=== PATIENT | female | born 1945 | race Caucasian/White ===

== ENCOUNTER 2021-06-20 15:06 | Observation (INO) ==
[2021-06-20] MEDS ORDERED: Melatonin 3 MG TABLET PO PRN (18:13)
[2021-06-20] MEDS ORDERED: Naloxone 0.4 MG/ML INJ IVP PRN (18:13)
[2021-06-20] MEDS ORDERED: Perflutren Lipid Microsphere 1.3 ML in 0.9 % Sodium Chloride 8.7 ML IVP PRN (18:35)
[2021-06-20] MEDS ORDERED: Gadolinium Contrast Agent (WT Based) IV PRN (18:35)
[2021-06-21 04:37] LABS: Hemoglobin 11.6 g/dL (11.5-15.4); Mean Corpuscular HGB Conc 33.1 g/dL (31.6-35.5); Mean Corpuscular Hemoglobin 29.5 pg (28.0-33.3); Mean Corpuscular Volume 89.1 fL (83.0-100.0); Mean Platelet Volume 9.8 fL (9.4-12.4); Platelet Count 313 K/mcL (140-400); Red Blood Count 3.93 M/mcL (3.82-4.97); Red Cell Distribution Width 17.3 % (11.5-14.5); White Blood Count 5.8 K/mcL (4.3-11.1)
[2021-06-21 04:57] LABS: BUN/Creatinine Ratio 35 (6-26); Blood Urea Nitrogen 19 mg/dL (8-23); Calcium 8.9 mg/dL (8.6-10.3); Carbon Dioxide 26 mEq/L (23-29); Chloride 106 mEq/L (98-107); Chol/HDL Ratio 2.7 (0-4.9); Cholesterol 167 mg/dL (< 200); Glucose 106 mg/dL (70-105); HDL Cholesterol 61 mg/dL (40-59); LDL Cholesterol,Calculated 89 mg/dL (< 100); Magnesium 1.9 mg/dL (1.6-2.6); Osmolality,Calculated 293 (280-300); Potassium 3.9 mEq/L (3.5-5.1); Sodium 140 mEq/L (136-145); Triglycerides 87 mg/dL (< 150); eGFR For African Americans > 60 (> 60); eGFR For Non-African Americans > 60 (> 60)
[2021-06-21] MEDS: *HR* Heparin 5,000 UNIT/ML VIAL SQ SCH ×2 (05:32→17:12)
[2021-06-21] MEDS: Aspirin Enteric Coated 81 MG Tablet PO SCH (17:12)
[2021-06-22] MEDS: *HR* Heparin 5,000 UNIT/ML VIAL SQ SCH ×2 (05:20→18:13)
[2021-06-22] MEDS ORDERED: GADOBUTROL 30 MMOL/30 ML VIAL IVP ONE (07:26)
[2021-06-22] MEDS: Aspirin Enteric Coated 81 MG Tablet PO SCH (08:39)
[2021-06-22] MEDS: lisinopriL 5 MG TABLET PO SCH (08:39)
[2021-06-23] MEDS: *HR* Heparin 5,000 UNIT/ML VIAL SQ SCH (06:15)
[2021-06-23 06:33] VITALS: BP 127/79; PULSE 85; TEMP 97.9; O2SAT 98
[2021-06-23] MEDS: Aspirin Enteric Coated 81 MG Tablet PO SCH (07:30)
[2021-06-23] MEDS: lisinopriL 5 MG TABLET PO SCH (07:30)
== END 2021-06-23 09:35 | disposition home health service (06) ==
LOC: 3BNU → SUATTDRO 17:48
PROVIDERS: ADMIT Family Medicine; ATTEND Internal Medicine

== ENCOUNTER 2021-06-25 07:52 | Observation (INO) ==
[2021-06-25] MEDS ORDERED: Gadolinium Contrast Agent (WT Based) IV PRN ×2 (08:01→08:02)
[2021-06-25] MEDS ORDERED: GI Cocktail 40 ML EACH PO ONE (08:24)
[2021-06-25 08:51] LABS: Hematocrit 34.4 % (35.3-44.9); Mean Corpuscular Hemoglobin 28.9 pg (28.0-33.3); Mean Corpuscular Volume 90.3 fL (83.0-100.0); Mean Platelet Volume 9.9 fL (9.4-12.4); Platelet Count 279 K/mcL (140-400); Red Blood Count 3.81 M/mcL (3.82-4.97); Red Cell Distribution Width 17.2 % (11.5-14.5); White Blood Count 4.8 K/mcL (4.3-11.1)
[2021-06-25] MEDS ORDERED: GADOBUTROL 30 MMOL/30 ML VIAL IVP ONE (09:02)
[2021-06-25 09:09] LABS: BUN/Creatinine Ratio 30 (6-26); Blood Urea Nitrogen 15 mg/dL (8-23); Calcium 8.8 mg/dL (8.6-10.3); Carbon Dioxide 23 mEq/L (23-29); Chloride 108 mEq/L (98-107); Glucose 119 mg/dL (70-105); Osmolality,Calculated 290 (280-300); Potassium 3.6 mEq/L (3.5-5.1); Sodium 139 mEq/L (136-145); eGFR For African Americans > 60 (> 60); eGFR For Non-African Americans > 60 (> 60)
[2021-06-25] MEDS ORDERED: Ondansetron 4 MG/2 ML VIAL IVP PRN (11:39)
[2021-06-25] MEDS ORDERED: Naloxone 0.4 MG/ML INJ IVP PRN (11:39)
[2021-06-25] MEDS ORDERED: Pantoprazole 40 MG VIAL IVP SCH (18:00)
[2021-06-25] MEDS ORDERED: *HR* LORazepam 2 MG/ML VIAL IVP ONE (21:59)
[2021-06-26 05:16] LABS: Basophils % 0.9 %; Eosinophils # 0.2 K/mcL (0.0-0.6); Eosinophils % 5.2 %; Hematocrit 31.1 % (35.3-44.9); Hemoglobin 10.2 g/dL (11.5-15.4); Immature Granulocytes % 0.4 % (0-4); Lymphocytes # 0.7 K/mcL (0.6-4.6); Lymphocytes % 14.2 %; Mean Corpuscular HGB Conc 32.8 g/dL (31.6-35.5); Mean Corpuscular Hemoglobin 29.9 pg (28.0-33.3); Mean Corpuscular Volume 91.2 fL (83.0-100.0); Mean Platelet Volume 9.9 fL (9.4-12.4); Monocytes # 0.6 K/mcL (0.0-1.3); Monocytes % 13.4 %; Neutrophils # 3.1 K/mcL (1.6-8.9); Platelet Count 236 K/mcL (140-400); Red Blood Count 3.41 M/mcL (3.82-4.97); Red Cell Distribution Width 17.3 % (11.5-14.5); Segmented Neutrophils % 65.9 %; White Blood Count 4.6 K/mcL (4.3-11.1)
[2021-06-26 05:28] LABS: BUN/Creatinine Ratio 20 (6-26); Blood Urea Nitrogen 10 mg/dL (8-23); Calcium 8.6 mg/dL (8.6-10.3); Carbon Dioxide 24 mEq/L (23-29); Chloride 110 mEq/L (98-107); Glucose 104 mg/dL (70-105); Osmolality,Calculated 289 (280-300); Potassium 3.7 mEq/L (3.5-5.1); Sodium 140 mEq/L (136-145); eGFR For African Americans > 60 (> 60); eGFR For Non-African Americans > 60 (> 60)
[2021-06-26] MEDS ORDERED: Levothyroxine Sodium 100 MCG VIAL IVP SCH (06:30)
[2021-06-26] MEDS ORDERED: Isovue-370 500 ML BOTTLE IVP ONE (08:26)
[2021-06-26] MEDS ORDERED: Isovue-370 500 ML BOTTLE PO ONE (09:01)
[2021-06-26 10:49] LABS: % Iron Saturation 18 % (15-50); Iron 63 mcg/dL (50-170); Transferrin 245 mg/dL (203-362)
[2021-06-26 11:05] LABS: Triiodothyronine (T3) Free 2.61 pg/mL (2.50-3.90)
[2021-06-26 11:10] LABS: Ferritin 27 ng/mL (10-120)
[2021-06-26 11:28] VITALS: O2SAT 99
[2021-06-26 14:50] VITALS: BP 142/83; PULSE 76; TEMP 97.7
== END 2021-06-26 17:15 | disposition home or self-care (01) ==
LOC: EMEROOARM 07:52 → 3BNU 07:52
PROVIDERS: ADMIT Student in an Organized Health Care Education/Training Program; ATTEND Student in an Organized Health Care Education/Training Program